=== PATIENT | male | born 1970 | race African-American/Black ===

== ENCOUNTER 2016-12-20 09:25 | Inpatient (IN) | payer OTHER ==
[2016-12-20 09:43] VITALS: BMI 24.7
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
[2016-12-20] MEDS ORDERED: chlordiazePOXIDE HCL 25 MG CAPSULE PO ONE (11:28)
[2016-12-20] MEDS ORDERED: MAGNESIUM CITRATE 300 ML BOTTLE PO PRN (11:28)
[2016-12-20] MEDS ORDERED: P-EPHED 60MG/TRIPROLIDI 2.5MG TABLET PO PRN (11:28)
[2016-12-20] MEDS ORDERED: LOPERAMIDE HCL 2 MG CAPSULE PO PRN (11:28)
[2016-12-20] MEDS ORDERED: NICOTINE POLACRILEX 4 MG GUM BUC PRN (11:28)
[2016-12-20] MEDS ORDERED: ACETAMINOPHEN 325 MG TABLET (FP) PO PRN (11:28)
[2016-12-20] MEDS ORDERED: MAG HYDROX/AL HYDROX/SIMETH 30 ML UNIT-DOSE CUP PO PRN (11:28)
[2016-12-20] MEDS ORDERED: MENTHOL/PHENOL 1 EACH UD MM PRN (11:28)
[2016-12-20] MEDS ORDERED: MAGNESIUM HYDROX 2400MG/30ML ORAL SUSPENSION 30 ML CUP PO PRN (11:28)
[2016-12-20] MEDS ORDERED: diphenhydrAMINE HCL 50 MG CAPSULE PO PRN (11:28)
[2016-12-20] MEDS ORDERED: guaiFENesin/D-METHORPHAN HB 10 ML UNIT-DOSE CUPS PO PRN (11:28)
[2016-12-20] MEDS ORDERED: hydrOXYzine PAMOATE 50 MG CAPSULE (FP) PO PRN (11:28)
[2016-12-20] MEDS ORDERED: chlordiazePOXIDE HCL 25 MG CAPSULE PO PRN (11:28)
[2016-12-20] MEDS ORDERED: LIDOCAINE 5% TOPICAL PATCH TP ONE (11:30)
[2016-12-20] MEDS: IBUPROFEN 400 MG TABLET (FP) PO SCH ×2 (12:32→19:18)
[2016-12-20] MEDS ORDERED: CYCLOBENZAPRINE HCL 10 MG TABLET (FP) PO PRN (13:16)
[2016-12-20] MEDS: chlordiazePOXIDE HCL 25 MG CAPSULE PO SCH ×2 (17:13→22:14)
[2016-12-20 17:34] LABS: URINE APPEARANCE SLCLOUDY; URINE BILIRUBIN NEGATIVE (NEGATIVE); URINE BLOOD NEGATIVE (NEGATIVE); URINE COLOR YELLOW; URINE GLUCOSE (UA) NEGATIVE (NEGATIVE); URINE KETONE NEGATIVE (NEGATIVE); URINE NITRITE NEGATIVE (NEGATIVE); URINE PROTEIN NEGATIVE (NEGATIVE)
[2016-12-20 20:30] LABS: URINE LEUK ESTERASE Negative (NEGATIVE)
[2016-12-20] MEDS: THIAMINE HCL 100 MG TABLET (FP) PO SCH (22:14)
[2016-12-20] MEDS: LIDOCAINE PATCH REMOVAL MC SCH (22:48)
[2016-12-21] MEDS: chlordiazePOXIDE HCL 25 MG CAPSULE PO SCH ×4 (06:02→22:04)
[2016-12-21] MEDS: IBUPROFEN 400 MG TABLET (FP) PO SCH ×4 (06:02→22:35)
[2016-12-21 09:43] LABS: MCH 30.7 pg (25.7-33.7); MCHC 34.3 g/dl (32.0-35.9); MEAN CELL VOLUME 89.6 fl (80-96); MEAN PLT VOLUME 9.2 fl (7.5-11.1); PLATELET COUNT 289 K/MM3 (134-434); RDW 13.6 % (11.9-15.9); WHITE BLOOD COUNT 6.1 K/mm3 (4.0-10.0)
[2016-12-21 10:03] LABS: ALBUMIN 2.9 g/dl (3.4-5.0); ALK PHOS 112 U/L (45-117); ANION GAP 7 (8-16); BILIRUBIN,TOTAL 0.4 mg/dL (0.2-1.0); CALCIUM 8.2 mg/dL (8.5-10.1); CO2 25 mmol/L (21-32); CREATININE 0.9 mg/dL (0.7-1.3); GLUCOSE,RANDOM 93 mg/dL (74-106); SGOT/AST 10 U/L (15-37); SGPT/ALT 14 U/L (12-78); TOT PROT 6.1 g/dl (6.4-8.2)
[2016-12-21 10:43] LABS: HIV 1 & 2 AB NEGATIVE; HIV 1 AGp24 NEGATIVE
--- NOTE | 2016-12-21 10:50 | PN ---
[facility] CIWA - CIWA Score Nausea/Vomitin-No Nausea/No Vomiting Muscle Tremors: 4-Moderate,w/Arms Extend Anxiety: 4-Mod. Anxious/Guarded Agitation: 4-Moderately Restless Paroxysmal Sweats: 1-Minimal Palms Moist Orientation: 0-Oriented Tacttile Disturbances: 3-Moderate Itch/Numb/Burn Auditory Disturbances: 0-None Visual Disturbances: 0-None Headache: 0-None Present CIWA-Ar Total Score: 16 BHS Progress Note (SOAP) Subjective: ANXIETY,SWEATS,FATIGUE. Objective: 12/21/16 10:50 Vital Signs Temperature 97.7 F 12/20/16 22:24 Pulse Rate 83 12/20/16 22:24 Respiratory Rate 18 12/21/16 03:30 Blood Pressure 122/80 12/20/16 22:24 O2 Sat by Pulse Oximetry (%) Laboratory Last Values WBC 6.1 K/mm3 (4.0-10.0) 12/21/16 07:00 RBC 4.40 M/mm3 (4.00-5.60) 12/21/16 07:00 Hgb 13.5 GM/dL (11.7-16.9) 12/21/16 07:00 Hct 39.5 % (35.4-49) 12/21/16 07:00 MCV 89.6 fl (80-96) 12/21/16 07:00 MCH 30.7 pg (25.7-33.7) 12/21/16 07:00 MCHC 34.3 g/dl (32.0-35.9) 12/21/16 07:00 RDW 13.6 % (11.9-15.9) 12/21/16 07:00 Plt Count 289 K/MM3 (134-434) 12/21/16 07:00 MPV 9.2 fl (7.5-11.1) 12/21/16 07:00 Sodium 144 mmol/L (136-145) 12/21/16 07:00 Potassium 4.0 mmol/L (3.5-5.1) 12/21/16 07:00 Chloride 112 mmol/L (98-107) H 12/21/16 07:00 Carbon Dioxide 25 mmol/L (21-32) 12/21/16 07:00 Anion Gap 7 (8-16) L 12/21/16 07:00 BUN 9 mg/dL (7-18) 12/21/16 07:00 Creatinine 0.9 mg/dL (0.7-1.3) 12/21/16 07:00 Creat Clearance w eGFR > 60 (>60) 12/21/16 07:00 Random Glucose 93 mg/dL (74-106) 12/21/16 07:00 Calcium 8.2 mg/dL (8.5-10.1) L 12/21/16 07:00 Total Bilirubin 0.4 mg/dL (0.2-1.0) 12/21/16 07:00 AST 10 U/L (15-37) L 12/21/16 07:00 ALT 14 U/L (12-78) 12/21/16 07:00 Alkaline Phosphatase 112 U/L (45-117) 12/21/16 07:00 Total Protein 6.1 g/dl (6.4-8.2) L 12/21/16 07:00 Albumin 2.9 g/dl (3.4-5.0) L 12/21/16 07:00 Urine Color Yellow 12/20/16 17:19 Urine Appearance Slcloudy 12/20/16 17:19 Urine pH 7.0 (5.0-8.0) 12/20/16 17:19 Ur Specific [place] 1.020 (1.005-1.025) 12/20/16 17:19 Urine Protein Negative (NEGATIVE) 12/20/16 17:19 Urine Glucose (UA) Negative (NEGATIVE) 12/20/16 17:19 Urine Ketones Negative (NEGATIVE) 12/20/16 17:19 Urine Blood Negative (NEGATIVE) 12/20/16 17:19 Urine Nitrite Negative (NEGATIVE) 12/20/16 17:19 Urine Bilirubin Negative (NEGATIVE) 12/20/16 17:19 Urine Urobilinogen 2.0 mg/dL (0.2-1.0) 12/20/16 17:19 Ur Leukocyte Esterase Negative (NEGATIVE) 12/20/16 17:19 HIV 1&2 Antibody Screen Negative 12/21/16 07:00 HIV P24 Antigen Negative 12/21/16 07:00 Assessment: 12/21/16 10:50 WITHDRAWAL SX Plan: CONTINUE DETOX
[2016-12-21] MEDS: NICOTINE 21 MG/24 HOURS TOPICAL PATCH TD SCH (11:26)
[2016-12-21] MEDS: PRENATAL VITAMINS W/ FOLIC ACID TABLET (FP) PO SCH (11:26)
[2016-12-21] MEDS: LIDOCAINE 5% TOPICAL PATCH TP SCH (11:26)
[2016-12-21] MEDS ORDERED: FLU VACCINE QUAD 60 MCG/0.5 ML (MDV 17-18) IM ONE (12:00)
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
[2016-12-21] MEDS ORDERED: ZOLPIDEM TARTRATE 10 MG TABLET (PARK CARE ONLY) PO PRN (22:00)
[2016-12-21] MEDS: DIVALPROEX SODIUM 250 MG TABLET E.C. (FP) PO SCH (22:04)
[2016-12-21] MEDS: THIAMINE HCL 100 MG TABLET (FP) PO SCH (22:04)
[2016-12-21] MEDS: LIDOCAINE PATCH REMOVAL MC SCH (22:05)
[2016-12-22] MEDS: chlordiazePOXIDE HCL 25 MG CAPSULE PO SCH ×2 (06:18→11:06)
[2016-12-22] MEDS: IBUPROFEN 400 MG TABLET (FP) PO SCH ×2 (06:19→13:01)
--- NOTE | 2016-12-22 07:24 | EKG ---
Test Reason : Blood Pressure : / mmHG Vent. Rate : 085 BPM Atrial Rate : 085 BPM P-R Int : 150 ms QRS Dur : 094 ms QT Int : 384 ms P-R-T Axes : 052 008 027 degrees QTc Int : 456 ms NORMAL SINUS RHYTHM NORMAL ECG NO PREVIOUS ECGS AVAILABLE Confirmed by EMMANUEL BOOGIE MD ([id number]) on 12/22/2016 7:23:37 AM Referred By: Confirmed By:EMMANUEL BOOGIE MD
[2016-12-22] MEDS ORDERED: ONDANSETRON *ODT* 4 MG TABLET SL PRN (11:01)
--- NOTE | 2016-12-22 11:01 | PN ---
[facility] CIWA - CIWA Score Nausea/Vomitin-No Nausea/No Vomiting Muscle Tremors: 4-Moderate,w/Arms Extend Anxiety: 4-Mod. Anxious/Guarded Agitation: 4-Moderately Restless Paroxysmal Sweats: 1-Minimal Palms Moist Orientation: 0-Oriented Tacttile Disturbances: 3-Moderate Itch/Numb/Burn Auditory Disturbances: 0-None Visual Disturbances: 0-None Headache: 0-None Present CIWA-Ar Total Score: 16 BHS Progress Note (SOAP) Subjective: ANXIETY,SWEATS,TREMORS,NAUSEA/VOMITING. Objective: 12/22/16 11:00 Vital Signs Temperature 97.6 F 12/22/16 09:23 Pulse Rate 79 12/22/16 09:23 Respiratory Rate 18 12/22/16 09:23 Blood Pressure 115/71 12/22/16 09:23 O2 Sat by Pulse Oximetry (%) Laboratory Last Values WBC 6.1 K/mm3 (4.0-10.0) 12/21/16 07:00 RBC 4.40 M/mm3 (4.00-5.60) 12/21/16 07:00 Hgb 13.5 GM/dL (11.7-16.9) 12/21/16 07:00 Hct 39.5 % (35.4-49) 12/21/16 07:00 MCV 89.6 fl (80-96) 12/21/16 07:00 MCH 30.7 pg (25.7-33.7) 12/21/16 07:00 MCHC 34.3 g/dl (32.0-35.9) 12/21/16 07:00 RDW 13.6 % (11.9-15.9) 12/21/16 07:00 Plt Count 289 K/MM3 (134-434) 12/21/16 07:00 MPV 9.2 fl (7.5-11.1) 12/21/16 07:00 Sodium 144 mmol/L (136-145) 12/21/16 07:00 Potassium 4.0 mmol/L (3.5-5.1) 12/21/16 07:00 Chloride 112 mmol/L (98-107) H 12/21/16 07:00 Carbon Dioxide 25 mmol/L (21-32) 12/21/16 07:00 Anion Gap 7 (8-16) L 12/21/16 07:00 BUN 9 mg/dL (7-18) 12/21/16 07:00 Creatinine 0.9 mg/dL (0.7-1.3) 12/21/16 07:00 Creat Clearance w eGFR > 60 (>60) 12/21/16 07:00 Random Glucose 93 mg/dL (74-106) 12/21/16 07:00 Calcium 8.2 mg/dL (8.5-10.1) L 12/21/16 07:00 Total Bilirubin 0.4 mg/dL (0.2-1.0) 12/21/16 07:00 AST 10 U/L (15-37) L 12/21/16 07:00 ALT 14 U/L (12-78) 12/21/16 07:00 Alkaline Phosphatase 112 U/L (45-117) 12/21/16 07:00 Total Protein 6.1 g/dl (6.4-8.2) L 12/21/16 07:00 Albumin 2.9 g/dl (3.4-5.0) L 12/21/16 07:00 Urine Color Yellow 12/20/16 17:19 Urine Appearance Slcloudy 12/20/16 17:19 Urine pH 7.0 (5.0-8.0) 12/20/16 17:19 Ur Specific [place] 1.020 (1.005-1.025) 12/20/16 17:19 Urine Protein Negative (NEGATIVE) 12/20/16 17:19 Urine Glucose (UA) Negative (NEGATIVE) 12/20/16 17:19 Urine Ketones Negative (NEGATIVE) 12/20/16 17:19 Urine Blood Negative (NEGATIVE) 12/20/16 17:19 Urine Nitrite Negative (NEGATIVE) 12/20/16 17:19 Urine Bilirubin Negative (NEGATIVE) 12/20/16 17:19 Urine Urobilinogen 2.0 mg/dL (0.2-1.0) 12/20/16 17:19 Ur Leukocyte Esterase Negative (NEGATIVE) 12/20/16 17:19 RPR Titer Nonreactive (NONREACTIVE) 12/21/16 07:00 HIV 1&2 Antibody Screen Negative 12/21/16 07:00 HIV P24 Antigen Negative 12/21/16 07:00 Assessment: 12/22/16 11:00 WITHDRAWAL SX Plan: CONTINUE DETOX ZOFRAN/TIGAN NEEDED.
[2016-12-22] MEDS: PRENATAL VITAMINS W/ FOLIC ACID TABLET (FP) PO SCH (11:06)
[2016-12-22] MEDS: NICOTINE 21 MG/24 HOURS TOPICAL PATCH TD SCH (11:06)
[2016-12-22] MEDS: DIVALPROEX SODIUM 250 MG TABLET E.C. (FP) PO SCH (11:06)
[2016-12-22] MEDS: LIDOCAINE 5% TOPICAL PATCH TP SCH (11:06)
[2016-12-22] MEDS ORDERED: chlordiazePOXIDE 5 MG CAPSULE PO SCH (17:00)
[2016-12-22 17:40] VITALS: BP 126/67; PULSE 84; TEMP 98.3
--- NOTE | 2016-12-22 18:17 | PN ---
[facility] Progress Note Note: PT. REQUESTED TO LEAVE AMA. HE STATES [facility] P[facility] AND [facility] FOR T[facility]ATMENT. PT. IN STABLE CONDITION WITH NO COMPLAINTS OF WITHDRAWAL SYMPTOMS REPORTED OR NOTED. HE STATED HE DID NOT NEED ANY REFILLS ON MEDICATIONS. Last Vital Signs Temp Pulse Resp BP Pulse Ox 98.3 F 84 18 126/67 12/22/16 17:40 12/22/16 17:40 12/22/16 17:40 12/22/16 17:40
--- NOTE | 2016-12-22 18:19 | DS ---
[facility] Detox Discharge Summary Admission Date: 12/20/16 Discharge Date: 12/22/16 - History Present History: Alcohol Dependence, Cocaine Dependence - Physical Exam Results Vital Signs: Vital Signs Temperature 98.3 F 12/22/16 17:40 Pulse Rate 84 12/22/16 17:40 Respiratory Rate 18 12/22/16 17:40 Blood Pressure 126/67 12/22/16 17:40 O2 Sat by Pulse Oximetry (%) Pertinent Admission Physical Exam Findings: Laboratory Last Values WBC 6.1 K/mm3 (4.0-10.0) 12/21/16 07:00 RBC 4.40 M/mm3 (4.00-5.60) 12/21/16 07:00 Hgb 13.5 GM/dL (11.7-16.9) 12/21/16 07:00 Hct 39.5 % (35.4-49) 12/21/16 07:00 MCV 89.6 fl (80-96) 12/21/16 07:00 MCH 30.7 pg (25.7-33.7) 12/21/16 07:00 MCHC 34.3 g/dl (32.0-35.9) 12/21/16 07:00 RDW 13.6 % (11.9-15.9) 12/21/16 07:00 Plt Count 289 K/MM3 (134-434) 12/21/16 07:00 MPV 9.2 fl (7.5-11.1) 12/21/16 07:00 Sodium 144 mmol/L (136-145) 12/21/16 07:00 Potassium 4.0 mmol/L (3.5-5.1) 12/21/16 07:00 Chloride 112 mmol/L (98-107) H 12/21/16 07:00 Carbon Dioxide 25 mmol/L (21-32) 12/21/16 07:00 Anion Gap 7 (8-16) L 12/21/16 07:00 BUN 9 mg/dL (7-18) 12/21/16 07:00 Creatinine 0.9 mg/dL (0.7-1.3) 12/21/16 07:00 Creat Clearance w eGFR > 60 (>60) 12/21/16 07:00 Random Glucose 93 mg/dL (74-106) 12/21/16 07:00 Calcium 8.2 mg/dL (8.5-10.1) L 12/21/16 07:00 Total Bilirubin 0.4 mg/dL (0.2-1.0) 12/21/16 07:00 AST 10 U/L (15-37) L 12/21/16 07:00 ALT 14 U/L (12-78) 12/21/16 07:00 Alkaline Phosphatase 112 U/L (45-117) 12/21/16 07:00 Total Protein 6.1 g/dl (6.4-8.2) L 12/21/16 07:00 Albumin 2.9 g/dl (3.4-5.0) L 12/21/16 07:00 Urine Color Yellow 12/20/16 17:19 Urine Appearance Slcloudy 12/20/16 17:19 Urine pH 7.0 (5.0-8.0) 12/20/16 17:19 Ur Specific [place] 1.020 (1.005-1.025) 12/20/16 17:19 Urine Protein Negative (NEGATIVE) 12/20/16 17:19 Urine Glucose (UA) Negative (NEGATIVE) 12/20/16 17:19 Urine Ketones Negative (NEGATIVE) 12/20/16 17:19 Urine Blood Negative (NEGATIVE) 12/20/16 17:19 Urine Nitrite Negative (NEGATIVE) 12/20/16 17:19 Urine Bilirubin Negative (NEGATIVE) 12/20/16 17:19 Urine Urobilinogen 2.0 mg/dL (0.2-1.0) 12/20/16 17:19 Ur Leukocyte Esterase Negative (NEGATIVE) 12/20/16 17:19 RPR Titer Nonreactive (NONREACTIVE) 12/21/16 07:00 HIV 1&2 Antibody Screen Negative 12/21/16 07:00 HIV P24 Antigen Negative 12/21/16 07:00 - Medication Discharge Medications: Ambulatory Orders Divalproex [Depakote -] 125 mg PO BID 12/20/16 Trazodone HCl 50 mg PO HS 12/20/16 Zolpidem Tartrate [Ambien] 10 mg PO HS 12/20/16 - Diagnosis (1) Alcohol dependence with uncomplicated withdrawal Current Visit: Yes Status: Chronic (2) Cocaine dependence, uncomplicated Current Visit: Yes Status: Chronic (3) Nicotine dependence Current Visit: Yes Status: Chronic - AMA Did Patient Leave Against Medical Advice: Yes ([facility] )
[2016-12-23] MEDS ORDERED: chlordiazePOXIDE HCL 10 MG CAPSULE PO SCH (17:00)
== END 2016-12-22 18:46 | disposition left against medical advice (07) | DRG 770 ==
LOC: YASAS 09:25 → Y3N 11:54
PROVIDERS: ADMIT Internal Medicine; ATTEND Internal Medicine
PROC: HZ2ZZZZ Detoxification Services for Substance Abuse Treatment (ICD-10-PCS; principal; 2016-12-20)
DX: F10.230 Alcohol dependence with withdrawal, uncomplicated (principal); F14.20 Cocaine dependence, uncomplicated; F17.210 Nicotine dependence, cigarettes, uncomplicated; F19.24 Other psychoactive substance dependence with psychoactive substance-induced mood disorder; F31.9 Bipolar disorder, unspecified; G47.00 Insomnia, unspecified; R26.89 Other abnormalities of gait and mobility; Z91.5 Personal history of self-harm; Z87.828 Personal history of other (healed) physical injury and trauma
CPT/HCPCS: 36415; 80053; 81003; 85027; 86593; 87389; 93005; 93010

== ENCOUNTER 2017-05-12 10:08 | Inpatient (IN) | payer OTHER ==
[2017-05-12 11:17] VITALS: BMI 24.3
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
[2017-05-12] MEDS ORDERED: P-EPHED 60MG/TRIPROLIDI 2.5MG TABLET PO PRN (13:08)
[2017-05-12] MEDS ORDERED: MAG HYDROX/AL HYDROX/SIMETH 30 ML UNIT-DOSE CUP PO PRN (13:08)
[2017-05-12] MEDS ORDERED: chlordiazePOXIDE HCL 25 MG CAPSULE PO PRN (13:08)
[2017-05-12] MEDS ORDERED: guaiFENesin/D-METHORPHAN HB 10 ML UNIT-DOSE CUPS PO PRN (13:08)
[2017-05-12] MEDS ORDERED: NICOTINE POLACRILEX 2 MG GUM BUC PRN (13:08)
[2017-05-12] MEDS ORDERED: MAGNESIUM HYDROX 2400MG/30ML ORAL SUSPENSION 30 ML CUP PO PRN (13:08)
[2017-05-12] MEDS ORDERED: MENTHOL/PHENOL 1 EACH UD MM PRN (13:08)
[2017-05-12] MEDS ORDERED: LOPERAMIDE HCL 2 MG CAPSULE PO PRN (13:08)
[2017-05-12] MEDS ORDERED: ACETAMINOPHEN 325 MG TABLET (FP) PO PRN (13:08)
[2017-05-12] MEDS ORDERED: MAGNESIUM CITRATE 300 ML BOTTLE PO PRN (13:08)
[2017-05-12] MEDS ORDERED: IBUPROFEN 400 MG TABLET (FP) PO PRN (13:08)
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
[2017-05-12] MEDS ORDERED: chlordiazePOXIDE HCL 25 MG CAPSULE PO ONE (18:00)
--- NOTE | 2017-05-12 22:02 | EKG ---
Test Reason : Blood Pressure : / mmHG Vent. Rate : 080 BPM Atrial Rate : 080 BPM P-R Int : 146 ms QRS Dur : 098 ms QT Int : 388 ms P-R-T Axes : 063 003 045 degrees QTc Int : 447 ms NORMAL SINUS RHYTHM NORMAL ECG WHEN COMPARED WITH ECG OF 20-DEC-2016 12:40, NO SIGNIFICANT CHANGE WAS FOUND Confirmed by BYRON MICHELLE MD ([id number]) on 05/12/2017 10:02:47 PM Referred By: Confirmed By:BYRON MICHELLE MD
[2017-05-12 22:52] LABS: URINE APPEARANCE CLOUDY; URINE BILIRUBIN NEGATIVE (NEGATIVE); URINE BLOOD NEGATIVE (NEGATIVE); URINE COLOR YELLOW; URINE GLUCOSE (UA) NEGATIVE (NEGATIVE); URINE KETONE NEGATIVE (NEGATIVE); URINE LEUK ESTERASE NEGATIVE (NEGATIVE); URINE NITRITE NEGATIVE (NEGATIVE); URINE PROTEIN NEGATIVE (NEGATIVE); URINE UROBILINOGEN NEGATIVE mg/dL (0.2-1.0)
[2017-05-12] MEDS: traZODone HCL 50 MG TABLET (FP) PO SCH (23:14)
[2017-05-12] MEDS: chlordiazePOXIDE HCL 25 MG CAPSULE PO SCH (23:14)
[2017-05-12] MEDS: THIAMINE HCL 100 MG TABLET (FP) PO SCH (23:15)
[2017-05-13] MEDS: chlordiazePOXIDE HCL 25 MG CAPSULE PO SCH ×4 (06:04→22:20)
[2017-05-13 10:05] LABS: HEMATOCRIT 38.1 % (35.4-49); MCH 29.2 pg (25.7-33.7); MEAN CELL VOLUME 85.8 fl (80-96); MEAN PLT VOLUME 9.6 fl (7.5-11.1); PLATELET COUNT 306 K/MM3 (134-434); RBC 4.45 M/mm3 (4.00-5.60); RDW 17.2 % (11.9-15.9); WHITE BLOOD COUNT 6.1 K/mm3 (4.0-10.0)
[2017-05-13] MEDS: PRENATAL VITAMINS W/ FOLIC ACID TABLET (FP) PO SCH (10:13)
[2017-05-13] MEDS: SERTRALINE HCL 50 MG TABLET (FP) PO SCH (10:13)
[2017-05-13] MEDS: BACITRACIN 0.9 GM PACKET TP SCH (10:13)
[2017-05-13] MEDS: NICOTINE 14 MG/24 HOURS TOPICAL PATCH TD SCH (10:13)
[2017-05-13 10:22] LABS: CHLORIDE 110 mmol/L (98-107); POTASSIUM 3.9 mmol/L (3.5-5.1); SODIUM 143 mmol/L (136-145)
[2017-05-13 10:29] LABS: ALBUMIN 3.3 g/dl (3.4-5.0); ALK PHOS 136 U/L (45-117); ANION GAP 10 (8-16); BILIRUBIN,TOTAL 0.2 mg/dL (0.2-1.0); BLOOD UREA NITROGEN 12 mg/dL (7-18); CALCIUM 8.4 mg/dL (8.5-10.1); CO2 23 mmol/L (21-32); CREATININE 1.1 mg/dL (0.7-1.3); GLUCOSE,RANDOM 163 mg/dL (74-106); SGOT/AST 14 U/L (15-37); SGPT/ALT 22 U/L (12-78); TOT PROT 6.8 g/dl (6.4-8.2)
--- NOTE | 2017-05-13 12:47 | PN ---
[facility] CIWA - CIWA Score Nausea/Vomitin-No Nausea/No Vomiting Muscle Tremors: 3 Anxiety: 4-Mod. Anxious/Guarded Agitation: 3 Paroxysmal Sweats: 2 Orientation: 2-Disoriented Date<2 days Tacttile Disturbances: 0-None Auditory Disturbances: 1-Very Mild Visual Disturbances: 1-Very Mild Sensitivity Headache: 0-None Present CIWA-Ar Total Score: 16 S Progress Note (SOAP) Subjective: Anxious, Tremors, Body Aches, Interrupted Sleep. Objective: PATIENT A & O X 2 (UNCERTAIN ABOUT CURRENT DAY / DATE), OBSERVED AMBULATING ON UNIT. NO ACUTE DISTRESS. 05/13/17 12:44 Vital Signs Temperature 98.3 F 05/13/17 09:24 Pulse Rate 98 H 05/13/17 09:24 Respiratory Rate 20 05/13/17 09:24 Blood Pressure 121/83 05/13/17 09:24 O2 Sat by Pulse Oximetry (%) Laboratory Tests 05/12/17 05/12/17 05/13/17 08:30 19:45 06:00 WBC 6.1 RBC 4.45 Hgb 13.0 Hct 38.1 MCV 85.8 MCH 29.2 MCHC 34.0 RDW 17.2 H D Plt Count 306 MPV 9.6 Sodium Potassium Chloride Carbon Dioxide Anion Gap BUN Creatinine Creat Clearance w eGFR Random Glucose Calcium Total Bilirubin AST ALT Alkaline Phosphatase Total Protein Albumin Urine Color Yellow Urine Appearance Cloudy Urine pH 7.0 Ur Specific [place] 1.021 Urine Protein Negative Urine Glucose (UA) Negative Urine Ketones Negative Urine Blood Negative Urine Nitrite Negative Urine Bilirubin Negative Urine Urobilinogen Negative Ur Leukocyte Esterase Negative RPR Titer HIV 1&2 Antibody Screen Negative HIV P24 Antigen Negative 05/13/17 05/13/17 06:00 06:00 WBC RBC Hgb Hct MCV MCH MCHC RDW Plt Count MPV Sodium 143 Potassium 3.9 Chloride 110 H Carbon Dioxide 23 Anion Gap 10 BUN 12 D Creatinine 1.1 D Creat Clearance w eGFR > 60 Random Glucose 163 H D Calcium 8.4 L Total Bilirubin 0.2 D AST 14 L D ALT 22 D Alkaline Phosphatase 136 H D Total Protein 6.8 Albumin 3.3 L Urine Color Urine Appearance Urine pH Ur Specific [place] Urine Protein Urine Glucose (UA) Urine Ketones Urine Blood Urine Nitrite Urine Bilirubin Urine Urobilinogen Ur Leukocyte Esterase RPR Titer Nonreactive HIV 1&2 Antibody Screen HIV P24 Antigen LABS NOTED. Assessment: 05/13/17 12:45 WITHDRAWAL SYMPTOMS. Plan: CONTINUE DETOX. INCREASE DAILY PO FLUID INTAKE. BGM ACBK FOR ELEVATED ADMISSION RANDOM GLUCOSE LEVEL.
[2017-05-13] MEDS: THIAMINE HCL 100 MG TABLET (FP) PO SCH (22:20)
[2017-05-13] MEDS: traZODone HCL 50 MG TABLET (FP) PO SCH (22:20)
[2017-05-13] MEDS: ZOLPIDEM TARTRATE 10 MG TABLET (PARK CARE ONLY) PO PRN (22:20)
[2017-05-14] MEDS: chlordiazePOXIDE HCL 25 MG CAPSULE PO SCH ×3 (06:01→17:23)
[2017-05-14] MEDS: BACITRACIN 0.9 GM PACKET TP SCH (10:24)
[2017-05-14] MEDS: SERTRALINE HCL 50 MG TABLET (FP) PO SCH (10:24)
[2017-05-14] MEDS: PRENATAL VITAMINS W/ FOLIC ACID TABLET (FP) PO SCH (10:24)
[2017-05-14] MEDS: NICOTINE 14 MG/24 HOURS TOPICAL PATCH TD SCH (10:25)
--- NOTE | 2017-05-14 11:31 | PN ---
S CIWA - CIWA Score Nausea/Vomitin-No Nausea/No Vomiting Muscle Tremors: 3 Anxiety: 4-Mod. Anxious/Guarded Agitation: 3 Paroxysmal Sweats: 2 Orientation: 0-Oriented Tacttile Disturbances: 2-Mild Itch/Numbness/Burn Auditory Disturbances: 0-None Visual Disturbances: 0-None Headache: 0-None Present CIWA-Ar Total Score: 14 BHS Progress Note (SOAP) Subjective: Tremors, Sweating, Anxious, Fatigue. Objective: PATIENT A & O X 3, OBSERVED AMBULTING ON UNIT. NO ACUTE DISTRESS. 05/14/17 11:30 Vital Signs Temperature 95.7 F L 05/14/17 10:48 Pulse Rate 81 05/14/17 10:48 Respiratory Rate 18 05/14/17 10:48 Blood Pressure 120/69 05/14/17 10:48 O2 Sat by Pulse Oximetry (%) Laboratory Tests 05/12/17 05/12/17 05/13/17 08:30 19:45 06:00 WBC 6.1 RBC 4.45 Hgb 13.0 Hct 38.1 MCV 85.8 MCH 29.2 MCHC 34.0 RDW 17.2 H D Plt Count 306 MPV 9.6 Sodium Potassium Chloride Carbon Dioxide Anion Gap BUN Creatinine Creat Clearance w eGFR POC Glucometer Random Glucose Calcium Total Bilirubin AST ALT Alkaline Phosphatase Total Protein Albumin Urine Color Yellow Urine Appearance Cloudy Urine pH 7.0 Ur Specific [place] 1.021 Urine Protein Negative Urine Glucose (UA) Negative Urine Ketones Negative Urine Blood Negative Urine Nitrite Negative Urine Bilirubin Negative Urine Urobilinogen Negative Ur Leukocyte Esterase Negative RPR Titer HIV 1&2 Antibody Screen Negative HIV P24 Antigen Negative 05/13/17 05/13/17 05/14/17 06:00 06:00 06:57 WBC RBC Hgb Hct MCV MCH MCHC RDW Plt Count MPV Sodium 143 Potassium 3.9 Chloride 110 H Carbon Dioxide 23 Anion Gap 10 BUN 12 D Creatinine 1.1 D Creat Clearance w eGFR > 60 POC Glucometer 113 Random Glucose 163 H D Calcium 8.4 L Total Bilirubin 0.2 D AST 14 L D ALT 22 D Alkaline Phosphatase 136 H D Total Protein 6.8 Albumin 3.3 L Urine Color Urine Appearance Urine pH Ur Specific [place] Urine Protein Urine Glucose (UA) Urine Ketones Urine Blood Urine Nitrite Urine Bilirubin Urine Urobilinogen Ur Leukocyte Esterase RPR Titer Nonreactive HIV 1&2 Antibody Screen HIV P24 Antigen LABS NOTED. Assessment: 05/14/17 11:30 WITHDRAWAL SYMPTOMS. Plan: CONTINUE DETOX.
[2017-05-14] MEDS: chlordiazePOXIDE 5 MG CAPSULE PO SCH (22:33)
[2017-05-14] MEDS: THIAMINE HCL 100 MG TABLET (FP) PO SCH (22:33)
[2017-05-14] MEDS: traZODone HCL 50 MG TABLET (FP) PO SCH (22:33)
[2017-05-15] MEDS: chlordiazePOXIDE 5 MG CAPSULE PO SCH ×3 (06:01→17:39)
[2017-05-15] MEDS: SERTRALINE HCL 50 MG TABLET (FP) PO SCH (10:27)
[2017-05-15] MEDS: BACITRACIN 0.9 GM PACKET TP SCH (10:27)
[2017-05-15] MEDS: NICOTINE 14 MG/24 HOURS TOPICAL PATCH TD SCH (10:27)
[2017-05-15] MEDS: PRENATAL VITAMINS W/ FOLIC ACID TABLET (FP) PO SCH (10:27)
--- NOTE | 2017-05-15 17:39 | PN ---
[facility] Progress Note (SOAP) Subjective: Anxious, Interrupted Sleep. Objective: PATIENT A & O X 3, OBSERVED AMBULATING ON UNIT. NO ACUTE DISTRESS. 05/15/17 17:38 Vital Signs Temperature 99.6 F 05/15/17 14:21 Pulse Rate 83 05/15/17 14:21 Respiratory Rate 16 05/15/17 14:21 Blood Pressure 123/69 05/15/17 14:21 O2 Sat by Pulse Oximetry (%) Laboratory Tests 05/12/17 05/12/17 05/13/17 08:30 19:45 06:00 WBC 6.1 RBC 4.45 Hgb 13.0 Hct 38.1 MCV 85.8 MCH 29.2 MCHC 34.0 RDW 17.2 H D Plt Count 306 MPV 9.6 Sodium Potassium Chloride Carbon Dioxide Anion Gap BUN Creatinine Creat Clearance w eGFR POC Glucometer Random Glucose Calcium Total Bilirubin AST ALT Alkaline Phosphatase Total Protein Albumin Urine Color Yellow Urine Appearance Cloudy Urine pH 7.0 Ur Specific [place] 1.021 Urine Protein Negative Urine Glucose (UA) Negative Urine Ketones Negative Urine Blood Negative Urine Nitrite Negative Urine Bilirubin Negative Urine Urobilinogen Negative Ur Leukocyte Esterase Negative RPR Titer HIV 1&2 Antibody Screen Negative HIV P24 Antigen Negative 05/13/17 05/13/17 05/14/17 06:00 06:00 06:57 WBC RBC Hgb Hct MCV MCH MCHC RDW Plt Count MPV Sodium 143 Potassium 3.9 Chloride 110 H Carbon Dioxide 23 Anion Gap 10 BUN 12 D Creatinine 1.1 D Creat Clearance w eGFR > 60 POC Glucometer 113 Random Glucose 163 H D Calcium 8.4 L Total Bilirubin 0.2 D AST 14 L D ALT 22 D Alkaline Phosphatase 136 H D Total Protein 6.8 Albumin 3.3 L Urine Color Urine Appearance Urine pH Ur Specific [place] Urine Protein Urine Glucose (UA) Urine Ketones Urine Blood Urine Nitrite Urine Bilirubin Urine Urobilinogen Ur Leukocyte Esterase RPR Titer Nonreactive HIV 1&2 Antibody Screen HIV P24 Antigen 05/15/17 06:03 WBC RBC Hgb Hct MCV MCH MCHC RDW Plt Count MPV Sodium Potassium Chloride Carbon Dioxide Anion Gap BUN Creatinine Creat Clearance w eGFR POC Glucometer 104 Random Glucose Calcium Total Bilirubin AST ALT Alkaline Phosphatase Total Protein Albumin Urine Color Urine Appearance Urine pH Ur Specific [place] Urine Protein Urine Glucose (UA) Urine Ketones Urine Blood Urine Nitrite Urine Bilirubin Urine Urobilinogen Ur Leukocyte Esterase RPR Titer HIV 1&2 Antibody Screen HIV P24 Antigen LABS NOTED. Assessment: 05/15/17 17:38 WITHDRAWAL SYMPTOMS. Plan: CONTINUE DETOX.
[2017-05-15] MEDS: ZOLPIDEM TARTRATE 10 MG TABLET (PARK CARE ONLY) PO PRN (21:58)
[2017-05-15] MEDS: chlordiazePOXIDE HCL 10 MG CAPSULE PO SCH (22:12)
[2017-05-15] MEDS: traZODone HCL 50 MG TABLET (FP) PO SCH (22:12)
[2017-05-15] MEDS: THIAMINE HCL 100 MG TABLET (FP) PO SCH (22:12)
[2017-05-16] MEDS: chlordiazePOXIDE HCL 10 MG CAPSULE PO SCH ×3 (07:16→17:40)
[2017-05-16] MEDS: NICOTINE 14 MG/24 HOURS TOPICAL PATCH TD SCH (11:13)
[2017-05-16] MEDS: BACITRACIN 0.9 GM PACKET TP SCH (11:13)
[2017-05-16] MEDS: PRENATAL VITAMINS W/ FOLIC ACID TABLET (FP) PO SCH (11:14)
[2017-05-16] MEDS: SERTRALINE HCL 50 MG TABLET (FP) PO SCH (11:15)
--- NOTE | 2017-05-16 15:39 | PN ---
S Progress Note (SOAP) Subjective: Anxious, restless, sweating, interrupted sleep. Patient is for [facility] rehab tomorrow. Patient is for discharge home today but requesting to stay until tomorrow so that Ramona can pick him up here. Patient is afraid of using drugs if he leaves today plus rehab can only pick him up from here. Objective: 05/16/17 15:36 Last Vital Signs Temp Pulse Resp BP Pulse Ox 96.5 F L 83 18 105/73 05/16/17 14:18 05/16/17 14:18 05/16/17 14:18 05/16/17 14:18 Laboratory Tests 05/12/17 05/12/17 05/13/17 08:30 19:45 06:00 WBC 6.1 RBC 4.45 Hgb 13.0 Hct 38.1 MCV 85.8 MCH 29.2 MCHC 34.0 RDW 17.2 H D Plt Count 306 MPV 9.6 Sodium Potassium Chloride Carbon Dioxide Anion Gap BUN Creatinine Creat Clearance w eGFR POC Glucometer Random Glucose Calcium Total Bilirubin AST ALT Alkaline Phosphatase Total Protein Albumin Urine Color Yellow Urine Appearance Cloudy Urine pH 7.0 Ur Specific [place] 1.021 Urine Protein Negative Urine Glucose (UA) Negative Urine Ketones Negative Urine Blood Negative Urine Nitrite Negative Urine Bilirubin Negative Urine Urobilinogen Negative Ur Leukocyte Esterase Negative RPR Titer HIV 1&2 Antibody Screen Negative HIV P24 Antigen Negative 05/13/17 05/13/17 05/14/17 06:00 06:00 06:57 WBC RBC Hgb Hct MCV MCH MCHC RDW Plt Count MPV Sodium 143 Potassium 3.9 Chloride 110 H Carbon Dioxide 23 Anion Gap 10 BUN 12 D Creatinine 1.1 D Creat Clearance w eGFR > 60 POC Glucometer 113 Random Glucose 163 H D Calcium 8.4 L Total Bilirubin 0.2 D AST 14 L D ALT 22 D Alkaline Phosphatase 136 H D Total Protein 6.8 Albumin 3.3 L Urine Color Urine Appearance Urine pH Ur Specific [place] Urine Protein Urine Glucose (UA) Urine Ketones Urine Blood Urine Nitrite Urine Bilirubin Urine Urobilinogen Ur Leukocyte Esterase RPR Titer Nonreactive HIV 1&2 Antibody Screen HIV P24 Antigen 05/15/17 05/16/17 06:03 07:08 WBC RBC Hgb Hct MCV MCH MCHC RDW Plt Count MPV Sodium Potassium Chloride Carbon Dioxide Anion Gap BUN Creatinine Creat Clearance w eGFR POC Glucometer 104 98 Random Glucose Calcium Total Bilirubin AST ALT Alkaline Phosphatase Total Protein Albumin Urine Color Urine Appearance Urine pH Ur Specific [place] Urine Protein Urine Glucose (UA) Urine Ketones Urine Blood Urine Nitrite Urine Bilirubin Urine Urobilinogen Ur Leukocyte Esterase RPR Titer HIV 1&2 Antibody Screen HIV P24 Antigen Labs noted Assessment: 05/16/17 15:37 Withdrawal symptoms Plan: Continue detox Discharge rescheduled until tomorrow. [facility] transportation to pick him up.
[2017-05-16] MEDS: traZODone HCL 50 MG TABLET (FP) PO SCH (22:10)
[2017-05-16] MEDS: THIAMINE HCL 100 MG TABLET (FP) PO SCH (22:10)
[2017-05-17 06:43] VITALS: PULSE 67
--- NOTE | 2017-05-17 09:54 | PN ---
[facility] Progress Note (SOAP) Subjective: DETOX COMPLETED. ALERT O X 3. NAD. PT [facility]FERR[facility] AFTERCARE. Objective: 05/17/17 09:53 Vital Signs Temperature 96.8 F L 05/17/17 06:43 Pulse Rate 67 03 06:43 Respiratory Rate 16 05/17/17 06:43 Blood Pressure 120/67 05/17/17 06:43 O2 Sat by Pulse Oximetry (%) Laboratory Last Values WBC 6.1 K/mm3 (4.0-10.0) 05/13/17 06:00 RBC 4.45 M/mm3 (4.00-5.60) 05/13/17 06:00 Hgb 13.0 GM/dL (11.7-16.9) 05/13/17 06:00 Hct 38.1 % (35.4-49) 05/13/17 06:00 MCV 85.8 fl (80-96) 05/13/17 06:00 MCH 29.2 pg (25.7-33.7) 05/13/17 06:00 MCHC 34.0 g/dl (32.0-35.9) 05/13/17 06:00 RDW 17.2 % (11.9-15.9) H D 05/13/17 06:00 Plt Count 306 K/MM3 (134-434) 05/13/17 06:00 MPV 9.6 fl (7.5-11.1) 05/13/17 06:00 Sodium 143 mmol/L (136-145) 05/13/17 06:00 Potassium 3.9 mmol/L (3.5-5.1) 05/13/17 06:00 Chloride 110 mmol/L (98-107) H 05/13/17 06:00 Carbon Dioxide 23 mmol/L (21-32) 05/13/17 06:00 Anion Gap 10 (8-16) 05/13/17 06:00 BUN 12 mg/dL (7-18) D 05/13/17 06:00 Creatinine 1.1 mg/dL (0.7-1.3) D 05/13/17 06:00 Creat Clearance w eGFR > 60 (>60) 05/13/17 06:00 POC Glucometer 90 UNITS (80-120) 05/17/17 06:24 Random Glucose 163 mg/dL (74-106) H D 05/13/17 06:00 Calcium 8.4 mg/dL (8.5-10.1) L 05/13/17 06:00 Total Bilirubin 0.2 mg/dL (0.2-1.0) D 05/13/17 06:00 AST 14 U/L (15-37) L D 05/13/17 06:00 ALT 22 U/L (12-78) D 05/13/17 06:00 Alkaline Phosphatase 136 U/L (45-117) H D 05/13/17 06:00 Total Protein 6.8 g/dl (6.4-8.2) 05/13/17 06:00 Albumin 3.3 g/dl (3.4-5.0) L 05/13/17 06:00 Urine Color Yellow 05/12/17 19:45 Urine Appearance Cloudy 05/12/17 19:45 Urine pH 7.0 (5.0-8.0) 05/12/17 19:45 Ur Specific [place] 1.021 (1.001-1.035) 05/12/17 19:45 Urine Protein Negative (NEGATIVE) 05/12/17 19:45 Urine Glucose (UA) Negative (NEGATIVE) 05/12/17 19:45 Urine Ketones Negative (NEGATIVE) 05/12/17 19:45 Urine Blood Negative (NEGATIVE) 05/12/17 19:45 Urine Nitrite Negative (NEGATIVE) 05/12/17 19:45 Urine Bilirubin Negative (NEGATIVE) 05/12/17 19:45 Urine Urobilinogen Negative mg/dL (0.2-1.0) 05/12/17 19:45 Ur Leukocyte Esterase Negative (NEGATIVE) 05/12/17 19:45 RPR Titer Nonreactive (NONREACTIVE) 05/13/17 06:00 HIV 1&2 Antibody Screen Negative 05/12/17 08:30 HIV P24 Antigen Negative 05/12/17 08:30 Assessment: 05/17/17 09:53 WITHDRAWAL SX Plan: D/C PT TODAY
--- NOTE | 2017-05-17 09:57 | DS ---
[facility] Detox Discharge Summary Admission Date: 05/12/17 Discharge Date: 05/17/17 - History Present History: Alcohol Dependence, Cocaine Dependence Additional Comments: DETOX COMPLETED. ALERT O X 3. NAD. Pertinent Past History: SEE DX BELOW - Physical Exam Results Vital Signs: Vital Signs Temperature 96.8 F L 05/17/17 06:43 Pulse Rate 67 05/17/17 06:43 Respiratory Rate 16 05/17/17 06:43 Blood Pressure 120/67 05/17/17 06:43 O2 Sat by Pulse Oximetry (%) Pertinent Admission Physical Exam Findings: WITHDRAWAL SX Laboratory Last Values WBC 6.1 K/mm3 (4.0-10.0) 05/13/17 06:00 RBC 4.45 M/mm3 (4.00-5.60) 05/13/17 06:00 Hgb 13.0 GM/dL (11.7-16.9) 05/13/17 06:00 Hct 38.1 % (35.4-49) 05/13/17 06:00 MCV 85.8 fl (80-96) 05/13/17 06:00 MCH 29.2 pg (25.7-33.7) 05/13/17 06:00 MCHC 34.0 g/dl (32.0-35.9) 05/13/17 06:00 RDW 17.2 % (11.9-15.9) H D 05/13/17 06:00 Plt Count 306 K/MM3 (134-434) 05/13/17 06:00 MPV 9.6 fl (7.5-11.1) 05/13/17 06:00 Sodium 143 mmol/L (136-145) 05/13/17 06:00 Potassium 3.9 mmol/L (3.5-5.1) 05/13/17 06:00 Chloride 110 mmol/L (98-107) H 05/13/17 06:00 Carbon Dioxide 23 mmol/L (21-32) 05/13/17 06:00 Anion Gap 10 (8-16) 05/13/17 06:00 BUN 12 mg/dL (7-18) D 05/13/17 06:00 Creatinine 1.1 mg/dL (0.7-1.3) D 05/13/17 06:00 Creat Clearance w eGFR > 60 (>60) 05/13/17 06:00 POC Glucometer 90 UNITS (80-120) 05/17/17 06:24 Random Glucose 163 mg/dL (74-106) H D 05/13/17 06:00 Calcium 8.4 mg/dL (8.5-10.1) L 05/13/17 06:00 Total Bilirubin 0.2 mg/dL (0.2-1.0) D 05/13/17 06:00 AST 14 U/L (15-37) L D 05/13/17 06:00 ALT 22 U/L (12-78) D 05/13/17 06:00 Alkaline Phosphatase 136 U/L (45-117) H D 05/13/17 06:00 Total Protein 6.8 g/dl (6.4-8.2) 05/13/17 06:00 Albumin 3.3 g/dl (3.4-5.0) L 05/13/17 06:00 Urine Color Yellow 05/12/17 19:45 Urine Appearance Cloudy 05/12/17 19:45 Urine pH 7.0 (5.0-8.0) 05/12/17 19:45 Ur Specific [place] 1.021 (1.001-1.035) 05/12/17 19:45 Urine Protein Negative (NEGATIVE) 05/12/17 19:45 Urine Glucose (UA) Negative (NEGATIVE) 05/12/17 19:45 Urine Ketones Negative (NEGATIVE) 05/12/17 19:45 Urine Blood Negative (NEGATIVE) 05/12/17 19:45 Urine Nitrite Negative (NEGATIVE) 05/12/17 19:45 Urine Bilirubin Negative (NEGATIVE) 05/12/17 19:45 Urine Urobilinogen Negative mg/dL (0.2-1.0) 05/12/17 19:45 Ur Leukocyte Esterase Negative (NEGATIVE) 05/12/17 19:45 RPR Titer Nonreactive (NONREACTIVE) 05/13/17 06:00 HIV 1&2 Antibody Screen Negative 05/12/17 08:30 HIV P24 Antigen Negative 05/12/17 08:30 - Treatment Hospital Course: Detox Protocol Followed, Detoxed Safely, Responded well, Discharged Condition Good, Rehab Referral Accepted - Medication Discharge Medications: Ambulatory Orders Divalproex [Depakote -] 125 mg PO BID 12/20/16 Zolpidem Tartrate [Ambien] 10 mg PO HS 12/20/16 Sertraline HCl [Zoloft -] 100 mg PO DAILY #30 tablet 05/15/17 Trazodone HCl 50 mg PO HS #30 tablet 05/15/17 - Diagnosis (1) Alcohol dependence with uncomplicated withdrawal Current Visit: Yes Status: Acute (2) Insomnia Current Visit: Yes Status: Acute (3) Substance induced mood disorder Current Visit: Yes Status: Acute (4) Cocaine dependence, uncomplicated Current Visit: Yes Status: Acute (5) Nicotine dependence Current Visit: Yes Status: Acute Qualifiers: Nicotine product type: cigarettes Substance use status: in withdrawal Qualified Code(s): F17.213 - Nicotine dependence, cigarettes, with withdrawal (6) Abnormal gait Current Visit: Yes Status: Chronic - AMA Did Patient Leave Against Medical Advice: No
[2017-05-17] MEDS: BACITRACIN 0.9 GM PACKET TP SCH (10:07)
[2017-05-17] MEDS: SERTRALINE HCL 50 MG TABLET (FP) PO SCH (10:07)
[2017-05-17] MEDS: NICOTINE 14 MG/24 HOURS TOPICAL PATCH TD SCH (10:07)
[2017-05-17] MEDS: PRENATAL VITAMINS W/ FOLIC ACID TABLET (FP) PO SCH (10:07)
[2017-05-17 10:10] VITALS: BP 110/87; TEMP 96.7
== END 2017-05-17 11:10 | disposition home or self-care (01) | DRG 774 ==
LOC: YASAS 10:08 → Y3N 13:26
PROVIDERS: ADMIT Internal Medicine; ATTEND Internal Medicine
PROC: HZ2ZZZZ Detoxification Services for Substance Abuse Treatment (ICD-10-PCS; principal; 2017-05-12)
DX: F10.230 Alcohol dependence with withdrawal, uncomplicated (principal); F14.20 Cocaine dependence, uncomplicated; F17.213 Nicotine dependence, cigarettes, with withdrawal; F19.24 Other psychoactive substance dependence with psychoactive substance-induced mood disorder; G47.00 Insomnia, unspecified; R26.9 Unspecified abnormalities of gait and mobility; Z91.5 Personal history of self-harm; Z59.0 Homelessness
CPT/HCPCS: 36415; 80053; 81003; 82962; 85027; 86593; 87389; 93005; 93010